=== PATIENT | female | born 1955 | race Caucasian/White ===

== ENCOUNTER 2019-01-15 10:19 | Observation (INO) | payer MEDICARE, OTHER ==
[2019-01-15] MEDS ORDERED: CEFAZOLIN 1 GM INJ (12:41)
[2019-01-15] MEDS ORDERED: PROPOFOL 20 ML ×3 (12:41→14:09)
[2019-01-15] MEDS ORDERED: MIDAZOLAM 1 MG/ML 2 ML INJ (12:41)
[2019-01-15] MEDS ORDERED: FENTAnyl 50 MCG/ML VIAL ×3 (12:41→14:16)
[2019-01-15] MEDS ORDERED: SUCCINYLCHOLINE CHLORIDE 100 MG/5 ML SYG IV (12:42)
[2019-01-15] MEDS ORDERED: LIDOCAINE 100 MG SYRINGE (12:42)
[2019-01-15] MEDS ORDERED: DIPHENHYDRAMINE 50 MG INJ IV ×2 (13:00)
[2019-01-15] MEDS ORDERED: ONDANSETRON 4 MG INJ IV (13:00)
[2019-01-15] MEDS ORDERED: IPRATROPIUM (NEB) 0.5 MG/2.5 ML AMP HHN ×2 (13:00)
[2019-01-15] MEDS ORDERED: FENTAnyl 50 MCG/ML VIAL IV ×2 (13:00)
[2019-01-15] MEDS ORDERED: hydrALAzine 20 MG INJ IV ×2 (13:00)
[2019-01-15] MEDS ORDERED: OXYCODONE/ACETAMINOPHEN (5/325) TAB PO ×4 (13:00)
[2019-01-15] MEDS ORDERED: LABETALOL HCL 20MG INJ IV ×2 (13:00)
[2019-01-15] MEDS ORDERED: ALBUTEROL 0.083% (NEB) 2.5 MG/3 ML AMP HHN ×2 (13:00)
[2019-01-15] MEDS ORDERED: MEPERIDINE 25 MG INJ IV (13:00)
[2019-01-15] MEDS ORDERED: EPHEDrine 25 MG/5 ML SYG IV ×2 (13:00)
[2019-01-15] MEDS ORDERED: HYDROmorphONE 1 MG/5 ML IV SYRINGE IV ×6 (13:00)
[2019-01-15] MEDS: LIDOCAINE 1.5%/EPI MPF (SDV) 30 ML VIAL (13:20)
[2019-01-15] MEDS ORDERED: LIDOCAINE 1.5%/EPI MPF (SDV) 30 ML VIAL (13:27)
[2019-01-15] MEDS ORDERED: HYDROmorphONE 0.2 MG/ML PCA IV (14:30)
[2019-01-15] MEDS ORDERED: NALOXONE (0.4 MG/ML) INJ IV (15:00)
[2019-01-15] MEDS: MEPERIDINE 25 MG INJ IV (15:03)
[2019-01-15] MEDS: ONDANSETRON 4 MG INJ IV ×2 (15:04→20:18)
[2019-01-15] MEDS: HYDROmorphONE 0.2 MG/ML PCA IV (15:18)
[2019-01-15] MEDS: FENTAnyl 50 MCG/ML VIAL IV (17:13)
[2019-01-15] MEDS ORDERED: ZOLPIDEM 5 MG TAB PO (20:00)
[2019-01-15] MEDS: LACTATED RINGER'S 1,000 ML IV (20:21)
[2019-01-15] MEDS: METOCLOPRAMIDE 10 MG INJ IV (22:22)
[2019-01-15] MEDS: CEFAZOLIN 2 GM/50 ML (PMX) 50 ML IVPB (22:25)
[2019-01-16] MEDS: LACTATED RINGER'S 1,000 ML IV ×3 (00:22→10:52)
[2019-01-16] MEDS: METOCLOPRAMIDE 10 MG INJ IV ×2 (04:44→11:25)
[2019-01-16] MEDS: CEFAZOLIN 2 GM/50 ML (PMX) 50 ML IVPB ×2 (06:01→13:14)
[2019-01-16] MEDS: GABAPENTIN 100 MG CAP PO (11:30)
[2019-01-16] MEDS: DOCUSATE SODIUM 100 MG CAP PO (13:14)
== END 2019-01-16 16:35 | disposition home or self-care (01) ==
LOC: REC 10:19 → 2NE 19:05
DX: N81.10 Cystocele, unspecified (principal); N39.46 Mixed incontinence; N76.1 Subacute and chronic vaginitis
CPT/HCPCS: 57240; 80053; 81003; 85025; 85610; 85730; 88305; 93005; 96361; 96365; 96366; 96374; 96375; 96376; 99217